=== PATIENT | male | born 1990 | race Caucasian/White ===

== ENCOUNTER 2017-02-08 17:37 | Observation (INO) | payer OTHER ==
--- NOTE | ~2017-02-08 | CT16 ---
[facility] A Service of [facility] RADIOLOGY TEXT RESULTS PATIENT: WYATT JOHNSTON LOCATION: [facility] : 89 UNIT #: [id number] AGE: [address]: Andrea Russo MD SEX: M ORDER DR: [id number] [facility] [address] [facility]. [place], [place] [address] [id number] MR#: [id number] Acc #: [id number] NAME: WYATT JOHNSTON : 1990 SEX: M STUDY DATE/TIME: 02/08/2017 20:09 UNIT: CEDOF ROOM: 32907 STUDY DESCRIPTION: CT Angio Chest for PE Attending Physician: Brooklyn Abreu M.D. Ordering Physician: Adriana Bey M.D. Primary Care Physician: No Primary Care Physician MEDICAL IMAGING REPORT This report is preliminary unless electronic signature is present EXAM CTA chest with contrast PE protocol 02/08/2017 HISTORY 26-year-old male with chest pain beginning today. Elevated D-dimer. COMPARISON Chest 02/08/2017 TECHNIQUE Helical scan performed through the chest following the timed bolus administration of IV contrast per PE protocol. Coronal 3-D MIP reconstructions. Sagittal reformatted images. This CT exam was performed with one or more of the following radiation dose reduction techniques: automatic control, adjustment of mA and/or kV according to patient size, and iterative reconstruction. FINDINGS There is adequate opacification of the pulmonary arteries with no filling defects noted. Thoracic aorta normal in course and caliber without dissection. Heart size is normal. No pericardial effusion. No pleural effusion. No pneumothorax. No parenchymal infiltrates. Scanning through the upper abdomen is unremarkable. No acute bony abnormality. IMPRESSION 1. Negative for pulmonary emboli. 2. Negative for thoracic aortic aneurysm/dissection. 3. No acute pulmonary process Dictated by... [facility] A Service [facility] RADIOLOGY TEXT RESULTS PATIENT: WYATT JOHNSTON LOCATION: [facility] : 89 UNIT #: [id number] AGE: [address]: Andrea Russo MD SEX: M ORDER DR: Randell Wadsworth M.D. THIS IS AN ELECTRONICALLY VERIFIED REPORT Randell Wadsworth M.D. at 02/09/2017 4:48 PM LORENZA/tyrese TD: 02/09/2017 02:05 JOB #: [id number] MEDICAL IMAGING REPORT Page 1 of 1 COPY
--- NOTE | ~2017-02-08 | DS ---
Unit #: [id number] #: [id number] Patient: WYATT JOHNSTON [id number] [address] [place], [place] [address] [id number] I MR#: [id number] NAME: WYATT JOHNSTON ROOM: 558 Age: 26 Sex: M Admission Date: 02/09/2017 : 1990 Discharge Date: 02/10/2017 Attending Physician: Andrea Russo M.D. Primary Care Physician: No Primary Care Physician DISCHARGE SUMMARY ADMITTING DIAGNOSIS Nausea, vomiting, diarrhea, tachycardia, methamphetamine substance abuse. DISCHARGE DIAGNOSES 1. Nausea, vomiting, diarrhea. 2. Tachycardia. 3. Methamphetamine substance abuse. HISTORY OF PRESENT ILLNESS The patient is a 26-year-old man who is unfortunately homeless with a past medical history of methamphetamine use by smoking who was in the emergency room yesterday with a chief complaint of nausea, vomiting, and tachycardia. His heart rate went up to 137. He was afebrile. He had normal WBC on initial hospitalization. He was given IV fluids. He was also given vancomycin. He did get two blood cultures drawn on 02/08/2017 but are so far negative. He is doing clinically better. I counseled him yesterday and today to quit doing drugs. We are providing him the number for [facility] to follow up in Dr. Rich office. I spoke with caseworker intake regarding the social situation and she said she will try to see what she can explore to help him. He wants to go home. He did not have any home medications. We are not giving any new medications. We are discharging home. We are requesting him to follow with [facility]. On the day of the discharge, his physical examination, vital signs showed temperature 98, pulse rate 76, respiration 20, blood pressure 125/79. Patient is alert and oriented x3 lying in the bed in no acute distress. HEENT is normocephalic and atraumatic. No icterus. PERRLA. Extraocular muscles intact. Neck is supple. No JVD. Heart S1 and S2 regular rate and rhythm. Chest bilaterally equal and clear to auscultation. Abdomen is soft and nontender. Again I counseled at length requesting him to stay clean from drugs and requesting him to follow up with [facility] as an outpatient. Total time spent in his discharge 28 minutes. Dictated by... Moni Saenz/jordana TD: 02/10/2017 14:20 JOB #: [id number] Unit #: [id number] #: [id number] Patient: WYATT JOHNSTON DISCHARGE SUMMARY Page 1 of 1 X X DISCHARGE SUMMARY
--- NOTE | ~2017-02-08 | CR72 ---
[facility] A Service of [facility] RADIOLOGY TEXT RESULTS PATIENT: WYATT JOHNSTON LOCATION: [place] [address] : 89 UNIT #: [id number] AGE: [address]: Andrea Russo MD SEX: M ORDER DR: [id number] [facility] [address] [facility]. [place], [place] [address] [id number] MR#: [id number] Acc #: [id number] NAME: WYATT JOHNSTON : 1990 SEX: M STUDY DATE/TIME: 02/08/2017 18:41 UNIT: JASON ROOM: STUDY DESCRIPTION: CR Chest Single View Portable Attending Physician: Adriana Bey M.D. Ordering Physician: Adriana Bey M.D. Primary Care Physician: No Primary Care Physician MEDICAL IMAGING REPORT This report is preliminary unless electronic signature is present EXAM Portable chest HISTORY Chest pain and back pain today FINDINGS A single AP portable view of the chest shows both lungs to be clear. The heart is normal in size. The mediastinal contour is normal. No significant bone abnormalities are seen. IMPRESSION Normal portable chest. Dictated by... Brock Roth M.D. THIS IS AN ELECTRONICALLY VERIFIED REPORT Brock Roht M.D. at 02/09/2017 5:13 PM JACINTO/ben TD: 02/09/2017 00:22 JOB #: [id number] MEDICAL IMAGING REPORT Page 1 of 1 COPY
--- NOTE | ~2017-02-08 | CO ---
Unit #: [id number] #: [id number] Patient: WYATT CHOPRA [id number] [facility] [address] [facility]. [place], [place] [address] [id number] I MR#: [id number] NAME: WYATT CHOPRA ROOM: 558 Age: 26 Sex: M Admission Date: 02/09/2017 : 1990 Attending Physician: Andrea Russo M.D. Primary Care Physician: No Primary Care Physician Consultation Date: 02/10/2017 CONSULTATION REPORT CHIEF COMPLAINT Amphetamine abuse, tachycardia, anxiety. HISTORY OF PRESENT ILLNESS Mr. Wyatt Chopra is a 26-year-old white male, seen in room 558, bed 1, on 02/10/2017 at [facility]. Patient was admitted with nausea, vomiting, diarrhea, tachycardia. Patient admitted to using methamphetamine and reported use several times recently. Patient denied any current suicidal or homicidal ideation. Denied any psychotic symptom, reported after using that, developed nausea, vomiting, diarrhea, anxiety, agitation. Patient denied the use of any other drugs. Patient denied any current suicidal or homicidal ideation. Denied any auditory of visual hallucinations. PAST PSYCHIATRIC HISTORY Remarkable for history of methamphetamine abuse. No history of any depression or suicide attempt or any inpatient or outpatient treatment. MEDICAL HISTORY Unremarkable. MEDICATION HISTORY None. FAMILY HISTORY/SOCIAL HISTORY Patient reported he has a good support system. No history of any abuse. History of substance abuse as mentioned above. Urine drug screen was positive for amphetamine. REVIEW OF SYSTEMS Complete review of system unremarkable. MENTAL STATUS EXAMINATION VITAL SIGNS: 98.0, 76, 20, 125/79, oxygen saturation 100%. GENERAL APPEARANCE: Patient is dressed in hospital attire, sitting comfortably in bed. ATTENTION SPAN AND CONCENTRATION: Fair. SPEECH: Regular rate coherent. ORIENTATION: Oriented in time, place and person. MOOD AND AFFECT: Labile. THOUGHT PROCESS: Coherent, thought somewhat guarded. THOUGHT CONTENT: Patient denied any thoughts of harming self or others or any hallucinations. RECENT AND REMOTE MEMORY: Fair. Unit #: [id number] #: [id number] Patient: WYATT CHOPRA LANGUAGE: Intact. FUND OF KNOWLEDGE: Fund of knowledge fair. INSIGHT AND JUDGMENT: Fair to slightly impaired. DIAGNOSTIC PSYCHIATRIC: 1. Methamphetamine abuse, F15.20. 2. Anxiety disorder, NOS, F40.01. SECONDARY DIAGNOSIS: Deferred. MEDICAL DIAGNOSIS: Please refer to H and P. STRESSORS: Psychosocial stressors. ASSESSMENT/PLAN 1. Supportive psychotherapy and psychoeducation provided to the patient. 2. Educated about benefits and side effects of medication and course and prognosis of illness. 3. Advised no medication at this time and patient was given information about [facility] outpatient program for chemical dependency, (1) Program, and also given crisis line number, telephone number . Please feel free to call if any questions, telephone number . Dictated by... Moni Dowell/jordana TD: 02/11/2017 07:48 JOB #: [id number] CONSULTATION REPORT Page 1 of 1 X Griffin Rich MD X CONSULTATION REPORT
--- NOTE | ~2017-02-08 | HP ---
Unit #: [id number] #: [id number] Patient: WYATT JOHNSTON [id number] [address] [place], [place] [address] [id number] I MR#: [id number] NAME: YWATT JOHNSTON ROOM: 60057 Age: 26 Sex: M Admission Date: 02/09/2017 : 1990 Attending Physician: Brooklyn Abreu M.D. Primary Care Physician: No Primary Care Physician HISTORY AND PHYSICAL CHIEF COMPLAINT Nausea, vomiting, diarrhea, tachycardia, methamphetamine abuse. HISTORY This 26-year-old male is admitted for tachycardia. The patient and his friend are a little vague about the history. Apparently the patient was well until the past day or so when he developed non-bloody nausea, vomiting and diarrhea. Yesterday was lightheaded, experienced chills, along with left chest pain. Used methamphetamines yesterday but denies injecting drugs. Presented to this emergency department last evening tachycardic with a heart rate of 137 which has improved after 2L of fluid. He is afebrile with a normal white count. However, lactic acid level was drawn and was elevated. Therefore, he currently is being given 2 g of vancomycin. On examination, he has reproducible left chest wall tenderness. PAST MEDICAL HISTORY Methamphetamine abuse yesterday. Patient did tell the ER physician that he previously used injectable drugs in the past, but denies this when his friend is present currently. ALLERGIES None. HOME MEDICATIONS None. FAMILY HISTORY Positive for heart disease. SOCIAL HISTORY The patient is homeless. He smokes one pack per day of tobacco, he drinks alcohol only on an occasional basis. Uses methamphetamines which he snorts. REVIEW OF SYSTEMS Difficult to obtain as patient, himself, is extremely vague. Most of the history is obtained by a friend who is at bedside. PHYSICAL EXAMINATION GENERAL APPEARANCE: Mildly ill appearing 26-year-old male. VITAL SIGNS: Temperature 98.6, pulse was 137, now down to 118, respirations 16, blood pressure 121/95. O2 saturation 100% on room air. Unit #: [id number] #: [id number] Patient: WYATT JOHNSTON HEENT: Eyes PERRLA. Extraocular muscles are intact. Pharynx is benign. NECK: Supple without adenopathy or thyromegaly. CHEST: Clear. CARDIAC: Tachy S1 and S2 without murmur. There is reproducible left chest wall tenderness on exam. ABDOMEN: Bowel sounds are present. Mild generalized abdominal tenderness without rebound or guarding. No hepatosplenomegaly or masses. EXTREMITIES: Without clubbing, cyanosis or edema. Pedal pulses are present. No splinter hemorrhages noted over the fingernail beds. NEUROLOGIC: The patient is awake, alert, oriented. Cranial nerves are intact. Equal strength throughout but generally weak on exam. DIAGNOSTIC STUDIES LABORATORY: Admission labs - hematocrit is 42.3, normal white count and platelet count. Cardiac markers are negative. INR 1.2. D-dimer is 6323. SMA-12 - sodium 134, alkaline phos. 126, lactic acid 3.8. Urine tox screen positive for amphetamines. Influenzae swabs are negative. Urinalysis - trace protein, otherwise negative. IMAGING: Chest x-ray - no acute disease. CTA of the chest is negative. CARDIOVASCULAR: EKG - sinus tachycardia, rate 134, otherwise normal. ASSESSMENT 1. Nausea, vomiting, diarrhea which may represent gastroenteritis: Unfortunately, a lactic acid level was drawn and was elevated. Elevation of the lactic acid significance is uncertain at this time. 2. Methamphetamine abuse. 3. Reproducible left chest wall tenderness. 4. Homeless. PLANS 1. IV fluids and supportive treatment. 2. Stool blood cultures will be obtained along a procalcitonin level. 3. One dose of vancomycin and Levaquin pending cultures. 4. Check HIV and thyroid function tests along with repeat labs and cardiac markers in the morning. 5. Social work to see for homelessness and methamphetamine abuse. 6. SCDs for DVT prophylaxis. 7. Repeat lactic acid level. Dictated by Brooklyn Abreu M.D. Unit #: [id number] #: [id number] Patient: WYATT JOHNSTON AML/df TD: 02/09/2017 05:11 JOB #: [id number] HISTORY AND PHYSICAL Page 1 of 1 X Brooklyn Abreu MD HISTORY AND PHYSICAL
--- NOTE | ~2017-02-08 | EKG ---
PATIENT: WYATT JOHNSTON UNIT #: [id number] Ventricular Rate: 134 BPM Atrial Rate: 134 BPM P-R Interval: 134 ms QRS Duration: 80 ms Q-T Interval: 300 ms QTC Calculation(Bezet): 448 ms P [place]: 65 degrees Calculated R [place]: 39 degrees Calculated T [place]: 45 degrees Diagnosis Line: Sinus tachycardia Diagnosis Line: Otherwise normal ECG Diagnosis Line: When compared with ECG of 23-OCT-2015 11:00, Diagnosis Line: Vent. rate has increased BY 69 BPM Diagnosis Line: T wave amplitude has decreased in Lateral leads Diagnosis Line: Confirmed by MALLORY ROUSE MD ([id number]) on 02/10/2017 Diagnosis Line: 9:49:37 AM INTERPRETING MD: PADMA GERARD
[2017-02-08 18:18] LABS: POC - CKMB <1.0 ng/mL (0.0-7.9); POC - TROPONIN <0.05 ng/mL (<=0.05)
[2017-02-08 18:48] LABS: BASOPHIL% 0.1 % (0-2.5); EOSINOPHIL% 0.2 % (0.0-7.0); HEMATOCRIT 42.3 % (38.0-50.0); LYMPHOCYTE# 0.3 X10e3 (1.0-3.5); LYMPHOCYTE% 3.6 % (17.0-45.0); MEAN CORPUSCULAR HEMOGLOBIN 29.4 PG (28-34); MEAN PLATELET VOLUME 8.1 FL (6.5-11.5); MONOCYTE# 0.1 X10e3 (0-1.0); MONOCYTE% 1.2 % (3.0-12.0); NEUTROPHIL# 8.4 X10e3 (1.5-7.1); NEUTROPHIL% 94.9 % (40-75); PLATELET COUNT 236 X10e3 (140-420); RED BLOOD COUNT 4.76 X10e (3.90-5.60); RED CELL DISTRIBUTION WIDTH 12.8 % (11.0-15.5); WHITE BLOOD COUNT 8.9 X10e3 (4.0-10.5)
[2017-02-08 18:51] LABS: DIFF IND NO
[2017-02-08 19:05] LABS: INR 1.2; PROTHROMBIN TIME (PATIENT) 12.7 SECONDS (9.6-11.5)
[2017-02-08 19:34] LABS: ALBUMIN SERUM 3.7 g/dL (3.5-5.0); BILIRUBIN, DIRECT 0.4 mg/dL (0.0-0.2); BILIRUBIN,INDIRECT 0.5 mg/dL (0.0-0.9); BILIRUBIN,TOTAL 0.9 mg/dL (0.2-2.0); CALCIUM SERUM 8.7 mg/dL (8.4-10.2); CREATININE SERUM 1.2 mg/dL (0.6-1.4); GLOM FILT RATE Estimated 82.4 mL/min (>60); POTASSIUM 3.9 mmol/L (3.5-5.1); PROTEIN TOTAL SERUM 7.1 g/dL (6.0-8.3)
[2017-02-08 22:50] LABS: INFLUENZA A NEG (NEG); INFLUENZA B NEG (NEG)
[2017-02-08 22:59] LABS: URINE SOURCE CLEAN CATCH
[2017-02-08 23:04] LABS: URINE APPEARANCE CLEAR; URINE BILIRUBIN NEG (NEG); URINE BLOOD NEG (NEG); URINE COLOR YELLOW; URINE GLUCOSE NEG (NEG); URINE KETONE NEG (NEG); URINE LEUKOCYTE ESTERASE NEG (NEG); URINE NITRATE NEG (NEG); URINE PH 6.5 (5-8); URINE PROTEIN TRACE (NEG); URINE SPECIFIC GRAVITY 1.024 (1.003-1.035); URINE UROBILINOGEN 0.2 MG/DL (NEG)
[2017-02-08 23:11] LABS: CULTURE INDICATED? NO
[2017-02-08 23:15] LABS: AMPHETAMINE POS (NEG); BARBITURATES NEG (NEG); BENZODIAZEPINES NEG (NEG); COCAINE NEG (NEG); MARIJUANA NEG (NEG); OPIATES NEG (NEG); TRICYCLIC ANTIDEPRESSANTS NEG (NEG); U METHADONE NEG (NEG)
[2017-02-09 00:07] LABS: POC - CKMB <1.0 ng/mL (0.0-7.9); POC - TROPONIN <0.05 ng/mL (<=0.05)
[2017-02-09 04:52] LABS: BASOPHIL% 0.1 % (0-2.5); HEMATOCRIT 39.1 % (38.0-50.0); HEMOGLOBIN 12.2 gm/dL (13.0-16.0); LYMPHOCYTE# 1.2 X10e3 (1.0-3.5); LYMPHOCYTE% 5.1 % (17.0-45.0); MEAN CORPUSCULAR HEMOGLOBIN 28.7 PG (28-34); MEAN CORPUSCULAR HGB CONC 31.1 g/dL (30-36); MONOCYTE# 1.1 X10e3 (0-1.0); MONOCYTE% 4.7 % (3.0-12.0); NEUTROPHIL% 90.1 % (40-75); PLATELET COUNT 215 X10e3 (140-420); RED BLOOD COUNT 4.25 X10e (3.90-5.60); RED CELL DISTRIBUTION WIDTH 13.5 % (11.0-15.5)
[2017-02-09 04:54] LABS: DIFF IND YES; MEAN CELL VOLUME 92.2 FL (83-96); WHITE BLOOD COUNT 24.4 X10e3 (4.0-10.5)
[2017-02-09 05:10] LABS: PLATELET ESTIMATE NORMAL (NORMAL)
[2017-02-09 05:11] LABS: ANISOCYTOSIS SL
[2017-02-09 06:38] LABS: THYROID STIMULATING HORMONE 0.64 uIU/ml (0.34-5.60)
[2017-02-09 06:40] LABS: BILIRUBIN,TOTAL 0.3 mg/dL (0.2-2.0); BUN/CREATININE RATIO 10.9; CALCIUM SERUM 7.8 mg/dL (8.4-10.2); CREATININE SERUM 1.1 mg/dL (0.6-1.4); GLOM FILT RATE Estimated 91.5 mL/min (>60); POTASSIUM 4.3 mmol/L (3.5-5.1); PROTEIN TOTAL SERUM 6.1 g/dL (6.0-8.3)
[2017-02-09 06:45] LABS: FREE THYROXIN (T4) 1.05 ng/dL (0.58-1.64)
[2017-02-09 07:24] LABS: PROCALCITONIN 122.74 NG/ML
[2017-02-09] MEDS ORDERED: NO MEDICATIONS (10:07)
[2017-02-10 05:29] LABS: HEMATOCRIT 35.7 % (38.0-50.0); HEMOGLOBIN 11.7 gm/dL (13.0-16.0); MEAN CELL VOLUME 90.4 FL (83-96); MEAN CORPUSCULAR HEMOGLOBIN 29.5 PG (28-34); MEAN CORPUSCULAR HGB CONC 32.7 g/dL (30-36); MEAN PLATELET VOLUME 8.4 FL (6.5-11.5); RED BLOOD COUNT 3.95 X10e (3.90-5.60); RED CELL DISTRIBUTION WIDTH 13.3 % (11.0-15.5)
[2017-02-10 06:54] LABS: ALBUMIN SERUM 2.7 g/dL (3.5-5.0); BILIRUBIN,TOTAL 0.1 mg/dL (0.2-2.0); CALCIUM SERUM 8.1 mg/dL (8.4-10.2); CREATININE SERUM 0.8 mg/dL (0.6-1.4); GLOM FILT RATE Estimated 122.5 mL/min (>60); POTASSIUM 3.8 mmol/L (3.5-5.1); PROTEIN TOTAL SERUM 5.6 g/dL (6.0-8.3)
[2017-02-12 15:10] LABS: HA AB IGM (HEPPAN) Nonreactive (()); HB CORE AB IGM (HEPPAN) Nonreactive (Nonreactive); HB S AG (HEPPAN) Nonreactive (Nonreactive); HEP C AB (HEPPAN) Nonreactive (Nonreactive); HEP C AB SIGNAL TO CUTOFF 0.02 ratio (<1.00)
== END 2017-02-10 18:36 | disposition home or self-care (01) ==
LOC: CED 17:37 → CEDOF 02-09 01:33 → C5B 02-09 01:33 → CEDOF 02-09 01:33 → C5B 02-09 08:35
PROVIDERS: Emergency Medicine; Internal Medicine
DX: R11.2 Nausea with vomiting, unspecified (principal); R19.7 Diarrhea, unspecified; R00.0 Tachycardia, unspecified; F15.10 Other stimulant abuse, uncomplicated; F40.01 Agoraphobia with panic disorder; R07.89 Other chest pain; R74.0 Nonspecific elevation of levels of transaminase and lactic acid dehydrogenase [LDH]; I07.1 Rheumatic tricuspid insufficiency; Z59.0 Homelessness; F17.200 Nicotine dependence, unspecified, uncomplicated; Z82.49 Family history of ischemic heart disease and other diseases of the circulatory system
CPT/HCPCS: 36415; 71010; 71275; 80048; 80053; 80074; 80076; 80307; 81003; 82308; 82550; 82553; 83605; 84439; 84443; 84484; 85025; 85027; 85379; 85610; 87040; 87804; 87806; 93005; 93306; 96361; 96365; 96366; 96374; 96375; 99285; G0378; J1956; J2405; J3370; Q9967

== ENCOUNTER 2017-04-21 03:57 | Emergency (ER) | payer OTHER ==
[~2017-04-21] VITALS: Ht 175.3 cm; Wt 77.1 kg
--- NOTE | ~2017-04-21 | CT2 ---
[facility] A Service of [facility] RADIOLOGY TEXT RESULTS PATIENT: WYATT JOHNSTON LOCATION: [facility] : 89 UNIT #: [id number] AGE: [address]: Glen Oliva MD SEX: M ORDER DR: [id number] [facility] [address] [facility] [place], [place] [address] [id number] E MR#: [id number] Acc #: [id number] NAME: WYATT JOHNSTON : 1990 SEX: M STUDY DATE/TIME: 04/21/2017 6:11 UNIT: [facility] ROOM: STUDY DESCRIPTION: CT Abd and Pelv W Cont Attending Physician: Glen Oliva M.D. Ordering Physician: Mario Sánchez P.A.-C. Primary Care Physician: Primary Care Physician No MEDICAL IMAGING REPORT This report is preliminary unless electronic signature is present EXAM CT abdomen and pelvis. INDICATIONS Generalized abdominal pain. Bilateral flank pain. Nausea and dizziness. TECHNIQUE CT of the abdomen and pelvis utilizing 100 mL Isovue-370 IV contrast. Coronal and sagittal reconstructions were obtained. This CT exam was performed with one or more of the following radiation dose reduction techniques: Automatic exposure control, adjustment of mA and/or kV according to patient size, and iterative reconstruction. COMPARISON None available. FINDINGS Hypodensities surrounding the portal triad has appearance more typical for mild periportal edema than for mild intrahepatic biliary dilatation. Please correlate with liver function tests to confirm. The gallbladder is not distended. The common bile duct is normal in caliber at the indira hepatitis. There are a few periportal lymph nodes that are mildly enlarged measuring up to 1.3 cm. The pancreas, spleen, adrenal glands, and kidneys are within normal limits. No hydronephrosis. The bowel is not dilated. No enlarged retroperitoneal or mesenteric lymph nodes. The appendix is not clearly identified, however there is no inflammatory change adjacent to the cecum. The abdominal aorta is normal in caliber. Pelvis: No pelvic mass. Bladder is unremarkable. No enlarged pelvic or inguinal lymph nodes. [facility] A Service of [facility] RADIOLOGY TEXT RESULTS PATIENT: WYATT JOHNSTON [facility] [id number] : 89 UNIT #: [id number] AGE: [address]: Glen Oliva MD SEX: M ORDER DR: No acute osseous abnormalities. There is a small low-attenuation lesion in the medial segment left hepatic lobe measuring 9 mm. This is unchanged from the 02/08/2017 exam and probably represents a benign cyst or hemangioma. IMPRESSION 1. Hypodensities surrounding the portal triad. This has appearance most typical for mild periportal edema, and mild intrahepatic biliary dilatation. I would recommend correlation with liver function tests to determine if there is any evidence of biliary obstruction. Periportal edema is typically associated with acute hepatic inflammation (i.e. hepatitis). 2. Borderline enlarged periportal lymph nodes. These typically are seen in association with hepatic inflammation or hepatic disease. 3. Please note that the appendix is not identified, however, there is no inflammatory change adjacent to the cecum. Dictated by... Alexander Barrios M.D. THIS IS AN ELECTRONICALLY VERIFIED REPORT Alexander Barrios M.D. at 04/21/2017 4:01 PM MAXX/chantelle TD: 04/21/2017 11:13 JOB #: [id number] MEDICAL IMAGING REPORT Page 1 of 1 COPY
[~2017-04-21 03:57] MED LIST: NO MEDICATIONS
[2017-04-21 05:14] LABS: BASOPHIL# 0.1 X10e3 (0-0.3); BASOPHIL% 0.6 % (0-2.5); EOSINOPHIL# 0.1 X10e3 (0-0.7); HEMATOCRIT 44.5 % (38.0-50.0); HEMOGLOBIN 14.4 gm/dL (13.0-16.0); LYMPHOCYTE# 1.8 X10e3 (1.0-3.5); LYMPHOCYTE% 13.1 % (17.0-45.0); MEAN CELL VOLUME 89.8 FL (83-96); MEAN CORPUSCULAR HEMOGLOBIN 29.1 PG (28-34); MEAN CORPUSCULAR HGB CONC 32.5 g/dL (30-36); MEAN PLATELET VOLUME 8.4 FL (6.5-11.5); MONOCYTE# 0.8 X10e3 (0-1.0); MONOCYTE% 5.7 % (3.0-12.0); NEUTROPHIL# 10.6 X10e3 (1.5-7.1); NEUTROPHIL% 79.6 % (40-75); PLATELET COUNT 233 X10e3 (140-420); RED BLOOD COUNT 4.95 X10e (3.90-5.60); RED CELL DISTRIBUTION WIDTH 15.2 % (11.0-15.5); WHITE BLOOD COUNT 13.3 X10e3 (4.0-10.5)
[2017-04-21 05:24] LABS: DIFF IND NO
[2017-04-21 05:51] LABS: ALBUMIN SERUM 3.9 g/dL (3.5-5.0); BILIRUBIN,INDIRECT 1.3 mg/dL (0.0-0.9); BILIRUBIN,TOTAL 2.3 mg/dL (0.2-2.0); BUN/CREATININE RATIO 17.14; CALCIUM SERUM 9.1 mg/dL (8.4-10.2); CREATININE SERUM 0.7 mg/dL (0.6-1.4); GLOM FILT RATE Estimated 129.4 mL/min (>60); POTASSIUM 4.3 mmol/L (3.5-5.1); PROTEIN TOTAL SERUM 7.5 g/dL (6.0-8.3)
[2017-04-21 07:18] LABS: URINE SOURCE CLEAN CATCH
[2017-04-21 07:23] LABS: URINE APPEARANCE CLEAR; URINE BLOOD NEG (NEG); URINE COLOR DK YELLOW; URINE GLUCOSE NEG (NEG); URINE KETONE NEG (NEG); URINE LEUKOCYTE ESTERASE NEG (NEG); URINE NITRATE NEG (NEG); URINE PH 6.5 (5-8); URINE PROTEIN NEG (NEG); URINE SPECIFIC GRAVITY 1.061 (1.003-1.035)
[2017-04-21 07:33] LABS: URINE BILIRUBIN NEG (NEG)
[2017-04-21 07:34] LABS: CULTURE INDICATED? NO
[2017-04-23 00:51] LABS: CHLAMYDIA TRACH Not Detected (Not Detected); N GONOR Not Detected (Not Detected)
[2017-04-23 18:33] LABS: HA AB IGM (HEPPAN) Nonreactive (()); HB CORE AB IGM (HEPPAN) Nonreactive (Nonreactive); HB S AG (HEPPAN) Nonreactive (Nonreactive); HEP C AB (HEPPAN) Reactive (Nonreactive)
== END 2017-04-21 08:10 | disposition home or self-care (01) ==
LOC: CED 03:57
PROVIDERS: Physician Assistant
DX: B17.9 Acute viral hepatitis, unspecified (principal); R30.0 Dysuria; F17.210 Nicotine dependence, cigarettes, uncomplicated
CPT/HCPCS: 36415; 74177; 80048; 80074; 80076; 81003; 83690; 85025; 87491; 87522; 87591; 96361; 96374; 96375; 99284; J1170; J2405; Q9967

== ENCOUNTER 2017-04-24 22:07 | Emergency (ER) | payer OTHER ==
[2017-04-25 01:26] LABS: BASOPHIL% 0.4 % (0-2.5); EOSINOPHIL# 0.3 X10e3 (0-0.7); EOSINOPHIL% 2.6 % (0.0-7.0); HEMATOCRIT 41.7 % (38.0-50.0); HEMOGLOBIN 13.8 gm/dL (13.0-16.0); LYMPHOCYTE# 2.5 X10e3 (1.0-3.5); LYMPHOCYTE% 25.4 % (17.0-45.0); MEAN CELL VOLUME 90.1 FL (83-96); MEAN CORPUSCULAR HEMOGLOBIN 29.8 PG (28-34); MEAN CORPUSCULAR HGB CONC 33.1 g/dL (30-36); MEAN PLATELET VOLUME 8.6 FL (6.5-11.5); MONOCYTE# 0.7 X10e3 (0-1.0); NEUTROPHIL# 6.5 X10e3 (1.5-7.1); NEUTROPHIL% 64.6 % (40-75); PLATELET COUNT 248 X10e3 (140-420); RED BLOOD COUNT 4.64 X10e (3.90-5.60); RED CELL DISTRIBUTION WIDTH 15.7 % (11.0-15.5)
[2017-04-25 01:39] LABS: DIFF IND NO
[2017-04-25 01:54] LABS: ALBUMIN SERUM 3.6 g/dL (3.5-5.0); BILIRUBIN,INDIRECT 1.1 mg/dL (0.0-0.9); BILIRUBIN,TOTAL 2.1 mg/dL (0.2-2.0); BUN/CREATININE RATIO 12.5; CALCIUM SERUM 8.7 mg/dL (8.4-10.2); CREATININE SERUM 0.8 mg/dL (0.6-1.4); GLOM FILT RATE Estimated 122.5 mL/min (>60); POTASSIUM 4.1 mmol/L (3.5-5.1); PROTEIN TOTAL SERUM 7.3 g/dL (6.0-8.3)
[2017-04-25 02:16] LABS: URINE SOURCE CLEAN CATCH
[2017-04-25 02:22] LABS: URINE APPEARANCE CLEAR; URINE BLOOD NEG (NEG); URINE COLOR DK YELLOW; URINE GLUCOSE NEG (NEG); URINE KETONE NEG (NEG); URINE LEUKOCYTE ESTERASE NEG (NEG); URINE NITRATE NEG (NEG); URINE PROTEIN NEG (NEG); URINE SPECIFIC GRAVITY 1.025 (1.003-1.035)
[2017-04-25 02:25] LABS: URINE BILIRUBIN POS (NEG)
[2017-04-25 02:26] LABS: CULTURE INDICATED? NO
== END 2017-04-25 05:24 | disposition home or self-care (01) ==
LOC: CED 22:07
DX: B17.9 Acute viral hepatitis, unspecified (principal); F17.200 Nicotine dependence, unspecified, uncomplicated
CPT/HCPCS: 36415; 80048; 80076; 81003; 82150; 83690; 85025; 96361; 96374; 96375; 99284; J1885; J2405